=== PATIENT | male | born 1990 | race Hispanic/Latino ===

== ENCOUNTER 2017-02-23 04:37 | Emergency (ER) | payer SELFPAY ==
[~2017-02-23] VITALS: Ht 167.6 cm; Wt 85.3 kg
[~2017-02-23 04:37] MED LIST: AUGMENTIN875 MG PO; LIDOCAINE20 MG/1 M5 PO; NAPROSYN500 MG PO; NORCO 5/3251 TABLET PO
[2017-02-23 05:24] LABS: CHLORIDE 104 mEq/L (99-109); SODIUM 139 mEq/L (136-147)
[2017-02-23 05:25] LABS: MAGNESIUM 1.9 mg/dL (1.3-2.7)
[2017-02-23 05:26] LABS: GLUCOSE 111 mg/dL (70-99)
[2017-02-23 05:27] LABS: ANION GAP 12 MEQ/L (2-14)
[2017-02-23 05:30] LABS: GFR ESTIMATE (CALCULATED) > 59 mL/min/ (58.99-99999)
[2017-02-23 05:31] LABS: UREA NITROGEN (BUN) 13 mg/dL (9-23)
[2017-02-23 05:36] LABS: MCH 30.5 PG (29.0-34.0); MCHC 34.7 G/DL (30.0-36.0); MCV 88.1 FL (86-99); MEAN PLAT.VOLUME 9.5 uM^3 (9.0-12.4); PLATELET COUNT 306 K/uL (156-360); RBC DIS.WIDTH-CV 12.1 % (11.8-14.6); RBC DIS.WIDTH-SD 39.4 % (39-53); RED BLOOD COUNT 5.11 M/uL (4.00-5.50); TROP-I INTERPRETATION NEGATIVE; TROPONIN-I < 0.01 ng/mL (0.0-0.30); WHITE BLOOD COUNT 8.4 K/uL (4.1-10.2)
[2017-02-23] MEDS ORDERED: ATARAX,VISTARIL25 MG PO (06:14)
[2017-02-23 06:34] VITALS: BP 143/94
== END 2017-02-23 06:36 | disposition home or self-care (01) ==
LOC: EME 04:37
PROVIDERS: Emergency Medicine
DX: R00.2 Palpitations (principal); R06.00 Dyspnea, unspecified; R00.0 Tachycardia, unspecified; F17.200 Nicotine dependence, unspecified, uncomplicated
CPT/HCPCS: 71020; 80048; 83735; 84484; 85027; 85379; 93005; Q0177